=== PATIENT | female | born 1965 | race Caucasian/White ===

== ENCOUNTER 2019-01-02 09:36 | Inpatient (IN) | payer MEDICAID ==
[~2019-01-02] VITALS: Ht 165.1 cm; Wt 172.6 kg
[~2019-01-02 09:36] MED LIST: ALBU8.5H5 INH; CHOL400C PO; FLUT12AE INH; GABA300C10 PO; IBUP200C8 PO; RANI75TA12 PO; SUMA50TA3 PO
[2019-01-02] MEDS ORDERED: AZITHROMYCIN 500 MG in SODIUM CHLORIDE 0.9% 250 ML IVPB ONE (10:00)
[2019-01-02] MEDS ORDERED: CEFTRIAXONE 1,000 MG in SODIUM CHLORIDE 0.9% 50 ML IVPB ONE (10:00)
[2019-01-02] MEDS ORDERED: SODIUM CHLORIDE FLUSH 10ML SYR IVF ONE (10:00)
[2019-01-02] MEDS ORDERED: CEFTRIAXONE PMX 1GM/50ML 50 ML IVPB ONE (10:30)
[2019-01-02] MEDS ORDERED: CEFTRIAXONE PMX 1GM/50ML 50 ML ONE (10:43)
[2019-01-02 10:50] LABS: BASOPHILS # (AUTO) 0.04 x10^3/uL (0-0.1); BASOPHILS % (AUTO) 0 % (0-1); EOSINOPHILS # (AUTO) 0.05 x10^3/uL (0-0.4); EOSINOPHILS % (AUTO) 0 % (1-7); LYMPHOCYTES # (AUTO) 1.19 x10^3/uL (1-3.4); LYMPHOCYTES % (AUTO) 7 % (22-44); MD NO; MEAN CORPUSCULAR HEMOGLOBIN 27.3 pg (27.0-34.8); MEAN CORPUSCULAR HGB CONC 32.8 g/dL (32.4-35.8); MEAN CORPUSCULAR VOLUME 83.2 fL (80-100); MEAN PLATELET VOLUME 9.1 fL (7.4-10.4); MONOCYTES # (AUTO) 0.67 x10^3/uL (0.2-0.8); MONOCYTES % (AUTO) 4 % (2-9); NEUTROPHILS # (AUTO) 14.57 x10^3/uL (1.8-6.8); NEUTROPHILS % (AUTO) 88 % (42-75); PLATELET COUNT 373 x10^3/uL (130-400); RED BLOOD COUNT 4.19 x10^6/uL (3.82-5.3); RED CELL DISTRIBUTION WIDTH 16.3 % (9.6-15.2)
[2019-01-02 10:51] LABS: RAPID INFLUENZA A Negative (Negative); RAPID INFLUENZA B Negative (Negative)
[2019-01-02 11:00] LABS: ALBUMIN 3.2 g/dL (3.4-5.0); ANION GAP 6 mmol/L (5-15); CALCIUM 8.6 mg/dL (8.5-10.1); CHLORIDE 110 mmol/L (98-107)
[2019-01-02 11:06] LABS: ALANINE AMINOTRANSFERASE 18 U/L (12-78); ALKALINE PHOSPHATASE 93 U/L (45-117); BILIRUBIN,TOTAL 0.4 mg/dL (0.2-1.0); TOTAL PROTEIN 7.6 g/dL (6.4-8.2)
--- NOTE | 2019-01-02 11:16 | NUR ---
PRECEPTOR RN: PT CLEANED UP AND LINENS CHANGED.
[2019-01-02] MEDS ORDERED: SODIUM CHLORIDE FLUSH 10ML SYR IVF PRN (11:30)
[2019-01-02] MEDS ORDERED: ALBUTEROL SULFATE 2.5 MG/3 ML ONE (11:45)
[2019-01-02] MEDS ORDERED: ALBUTEROL SULFATE 2.5 MG/3 ML NPPB ONE (12:00)
--- NOTE | 2019-01-02 12:11 | NUR ---
Razia musa in ED - 01/02/19 at 1211 by RONEY PRECEPTOR RN: REPORT TO TONI TEE. ALL QUESTIONS ANSWERED.
--- NOTE | 2019-01-02 12:12 | NUR ---
PRECEPTOR RN: REPORT TO TONI TEE. ALL QUESTIONS ANSWERED.
[2019-01-02] MEDS ORDERED: TIZA6CAP PO (12:33)
[2019-01-02] MEDS ORDERED: DOXE10CA PO (12:33)
--- NOTE | 2019-01-02 13:00 | NUR ---
PRECEPTOR/BREAK RN: PT BEING TRANSPORTED TO FLOOR. PT LEFT WITH ALL PERSONAL BELONGINGS.
[2019-01-02 13:17] VITALS: BP 132/75
[2019-01-02 13:57] VITALS: BP 132/75
[2019-01-02] MEDS ORDERED: CEFTRIAXONE PMX 2GM/50ML 50 ML IV SCH (14:00)
[2019-01-02] MEDS: DOXYCYCLINE 100MG TABLET PO SCH ×2 (14:00→19:56)
[2019-01-02] MEDS ORDERED: ENALAPRILAT 1.25 MG/ML, 2ML IVPush PRN (14:00)
[2019-01-02] MEDS ORDERED: hydrALAzine 20 MG/ML, 1ML IVPush PRN (14:00)
[2019-01-02] MEDS ORDERED: ONDANSETRON 2MG/ML, 2ML IVPush PRN (14:00)
[2019-01-02] MEDS: ALBUTEROL SULFATE 2.5 MG/3 ML NPPB SCH ×2 (14:17→20:19)
[2019-01-02] MEDS: HEPARIN 5,000 UNITS/ML, 1ML SQ SCH ×2 (14:23→22:00)
[2019-01-02 14:31] LABS: HEMOGLOBIN A1C 6.5 % (4.2-6.3)
[2019-01-02] MEDS ORDERED: SODIUM CHLORIDE 0.9% 1,000 ML IV SCH (15:30)
[2019-01-02 19:12] VITALS: BP 149/82
[2019-01-02] MEDS: GUAIFENESIN ER 600 MG TABLET PO SCH (19:56)
[2019-01-03 01:40] VITALS: BP 141/79
[2019-01-03] MEDS: ALBUTEROL SULFATE 2.5 MG/3 ML NPPB SCH ×5 (04:28→19:20)
[2019-01-03] MEDS: HEPARIN 5,000 UNITS/ML, 1ML SQ SCH ×3 (05:22→21:42)
[2019-01-03 06:03] LABS: BASOPHILS # (AUTO) 0.04 x10^3/uL (0-0.1); BASOPHILS % (AUTO) 0 % (0-1); EOSINOPHILS # (AUTO) 0.06 x10^3/uL (0-0.4); EOSINOPHILS % (AUTO) 0 % (1-7); LYMPHOCYTES # (AUTO) 1.27 x10^3/uL (1-3.4); LYMPHOCYTES % (AUTO) 8 % (22-44); MD NO; MEAN CORPUSCULAR HEMOGLOBIN 27.3 pg (27.0-34.8); MEAN CORPUSCULAR HGB CONC 33.4 g/dL (32.4-35.8); MEAN PLATELET VOLUME 9.3 fL (7.4-10.4); MONOCYTES # (AUTO) 0.55 x10^3/uL (0.2-0.8); MONOCYTES % (AUTO) 4 % (2-9); NEUTROPHILS # (AUTO) 13.58 x10^3/uL (1.8-6.8); NEUTROPHILS % (AUTO) 88 % (42-75); PLATELET COUNT 367 x10^3/uL (130-400); RED BLOOD COUNT 4.26 x10^6/uL (3.82-5.3); RED CELL DISTRIBUTION WIDTH 16.7 % (9.6-15.2)
[2019-01-03 06:14] LABS: ANION GAP 8 mmol/L (5-15); CALCIUM 9.1 mg/dL (8.5-10.1); CHLORIDE 109 mmol/L (98-107); CREATININE 0.95 mg/dL (0.55-1.02)
[2019-01-03 06:48] VITALS: BP 171/69
[2019-01-03 09:45] VITALS: BP 201/100
[2019-01-03] MEDS: GUAIFENESIN ER 600 MG TABLET PO SCH ×2 (09:49→21:42)
[2019-01-03] MEDS: ACETAMINOPHEN 325 MG TABLET PO PRN (09:49)
[2019-01-03] MEDS: DOXYCYCLINE 100MG TABLET PO SCH (09:49)
[2019-01-03] MEDS ORDERED: methylPREDNISolone SOD SUCC 125 MG/2 ML IVPush ONE (10:00)
[2019-01-03] MEDS ORDERED: LORazepam 2 MG/ML, 1ML ONE (10:03)
[2019-01-03 10:08] VITALS: BP 169/73
[2019-01-03] MEDS ORDERED: LORazepam 2 MG/ML, 1ML IVPush ONE (10:30)
[2019-01-03] MEDS ORDERED: ROPI2TAB4 PO (11:47)
[2019-01-03] MEDS: PIPERACILLIN/TAZO/PMX 3.375GM 50 ML IV SCH ×2 (13:31→21:41)
[2019-01-03 14:00] VITALS: BP 122/89
[2019-01-03] MEDS: ROPINIROLE 1MG TABLET PO SCH ×2 (16:00→21:41)
[2019-01-03 20:21] VITALS: BP 129/77
[2019-01-03] MEDS: TIZANIDINE HCL 6 MG PO SCH (21:00)
[2019-01-03] MEDS: FLUTICASONE PROPIONATE INH SCH (21:00)
[2019-01-03] MEDS: DOXEPIN 10 MG CAPSULE PO SCH (21:42)
[2019-01-04 02:08] VITALS: BP 108/69
[2019-01-04] MEDS: PIPERACILLIN/TAZO/PMX 3.375GM 50 ML IV SCH ×4 (03:34→20:38)
[2019-01-04] MEDS: HEPARIN 5,000 UNITS/ML, 1ML SQ SCH ×3 (05:34→21:18)
[2019-01-04] MEDS: ALBUTEROL SULFATE 2.5 MG/3 ML NPPB SCH ×4 (07:00→19:10)
[2019-01-04 08:00] VITALS: BP 132/75
[2019-01-04] MEDS: FLUTICASONE PROPIONATE INH SCH ×2 (08:51→20:38)
[2019-01-04] MEDS: TIZANIDINE HCL 6 MG PO SCH ×2 (08:51→20:55)
[2019-01-04] MEDS: CHOLECALCIFEROL 400 UNITS TABLET PO SCH (09:18)
[2019-01-04] MEDS: ROPINIROLE 1MG TABLET PO SCH ×3 (09:18→20:41)
[2019-01-04] MEDS: GUAIFENESIN ER 600 MG TABLET PO SCH ×2 (09:18→20:37)
[2019-01-04 20:08] VITALS: BP 125/73
[2019-01-04] MEDS: DOXYCYCLINE 100MG TABLET PO SCH (20:37)
[2019-01-04] MEDS: DOXEPIN 10 MG CAPSULE PO SCH (20:37)
[2019-01-04] MEDS: ACETAMINOPHEN 325 MG TABLET PO PRN (20:55)
[2019-01-05 00:01] VITALS: BP 125/75
[2019-01-05] MEDS: PIPERACILLIN/TAZO/PMX 3.375GM 50 ML IV SCH ×2 (03:18→09:00)
[2019-01-05] MEDS: HEPARIN 5,000 UNITS/ML, 1ML SQ SCH ×3 (06:25→21:22)
[2019-01-05 06:34] VITALS: BP 133/88
[2019-01-05] MEDS: ALBUTEROL SULFATE 2.5 MG/3 ML NPPB SCH ×4 (06:44→18:50)
[2019-01-05] MEDS: FLUTICASONE PROPIONATE INH SCH ×2 (08:26→21:00)
[2019-01-05] MEDS: TIZANIDINE HCL 6 MG PO SCH ×2 (08:26→21:00)
[2019-01-05] MEDS: DOXYCYCLINE 100MG TABLET PO SCH ×3 (08:27→21:23)
[2019-01-05] MEDS: ROPINIROLE 1MG TABLET PO SCH ×3 (08:27→21:20)
[2019-01-05] MEDS: CHOLECALCIFEROL 400 UNITS TABLET PO SCH (08:27)
[2019-01-05] MEDS: GUAIFENESIN ER 600 MG TABLET PO SCH ×2 (08:27→21:23)
[2019-01-05 08:33] LABS: BASOPHILS # (AUTO) 0.07 x10^3/uL (0-0.1); BASOPHILS % (AUTO) 1 % (0-1); EOSINOPHILS % (AUTO) 1 % (1-7); LYMPHOCYTES # (AUTO) 3.05 x10^3/uL (1-3.4); LYMPHOCYTES % (AUTO) 22 % (22-44); MD NO; MEAN CORPUSCULAR HEMOGLOBIN 26.5 pg (27.0-34.8); MEAN CORPUSCULAR HGB CONC 31.9 g/dL (32.4-35.8); MEAN CORPUSCULAR VOLUME 83.3 fL (80-100); MEAN PLATELET VOLUME 9.2 fL (7.4-10.4); MONOCYTES # (AUTO) 0.77 x10^3/uL (0.2-0.8); MONOCYTES % (AUTO) 6 % (2-9); NEUTROPHILS # (AUTO) 9.97 x10^3/uL (1.8-6.8); NEUTROPHILS % (AUTO) 71 % (42-75); PLATELET COUNT 343 x10^3/uL (130-400); RED BLOOD COUNT 4.07 x10^6/uL (3.82-5.3); RED CELL DISTRIBUTION WIDTH 16.9 % (9.6-15.2)
[2019-01-05 08:36] LABS: ANION GAP 3 mmol/L (5-15); CALCIUM 8.5 mg/dL (8.5-10.1); CHLORIDE 111 mmol/L (98-107)
[2019-01-05 08:37] LABS: CREATININE 0.88 mg/dL (0.55-1.02)
[2019-01-05] MEDS: CEFDINIR 300 MG CAPSULE PO SCH ×2 (10:06→21:23)
[2019-01-05 13:49] VITALS: BP 135/87
[2019-01-05 17:50] VITALS: BP 147/90
[2019-01-05] MEDS: DOXEPIN 10 MG CAPSULE PO SCH (21:23)
[2019-01-06 00:28] VITALS: BP 138/81
[2019-01-06] MEDS: HEPARIN 5,000 UNITS/ML, 1ML SQ SCH ×3 (05:37→21:18)
[2019-01-06] MEDS: ALBUTEROL SULFATE 2.5 MG/3 ML NPPB SCH ×4 (08:50→20:15)
[2019-01-06] MEDS: FLUTICASONE PROPIONATE INH SCH ×2 (09:00→21:00)
[2019-01-06 09:12] VITALS: BP 141/78
[2019-01-06] MEDS: CHOLECALCIFEROL 400 UNITS TABLET PO SCH (09:23)
[2019-01-06] MEDS: ROPINIROLE 1MG TABLET PO SCH ×3 (09:28→21:19)
[2019-01-06] MEDS: GUAIFENESIN ER 600 MG TABLET PO SCH ×2 (09:29→21:19)
[2019-01-06] MEDS: DOXYCYCLINE 100MG TABLET PO SCH ×2 (09:31→21:20)
[2019-01-06] MEDS: CEFDINIR 300 MG CAPSULE PO SCH ×2 (09:31→21:20)
[2019-01-06] MEDS: TIZANIDINE HCL 6 MG PO SCH (13:04)
[2019-01-06 13:12] VITALS: BP 159/86
[2019-01-06 19:10] VITALS: BP 140/71
[2019-01-06] MEDS: TIZANIDINE HCL 6 MG HOMEMEDPO SCH (21:00)
[2019-01-06] MEDS: DOXEPIN 10 MG CAPSULE PO SCH (21:20)
[2019-01-07 00:23] VITALS: BP 125/70
[2019-01-07] MEDS: HEPARIN 5,000 UNITS/ML, 1ML SQ SCH ×3 (05:21→22:05)
[2019-01-07] MEDS: ALBUTEROL SULFATE 2.5 MG/3 ML NPPB SCH ×4 (07:36→18:59)
[2019-01-07 07:45] VITALS: BP 145/75
[2019-01-07] MEDS: ROPINIROLE 1MG TABLET PO SCH ×3 (09:45→22:05)
[2019-01-07] MEDS: CEFDINIR 300 MG CAPSULE PO SCH ×2 (09:46→22:06)
[2019-01-07] MEDS: CHOLECALCIFEROL 400 UNITS TABLET PO SCH (09:46)
[2019-01-07] MEDS: TIZANIDINE HCL 6 MG HOMEMEDPO SCH ×2 (09:47→22:07)
[2019-01-07] MEDS: GUAIFENESIN ER 600 MG TABLET PO SCH ×2 (09:47→22:06)
[2019-01-07] MEDS: DOXYCYCLINE 100MG TABLET PO SCH ×2 (09:47→22:05)
[2019-01-07] MEDS: FLUTICASONE PROPIONATE INH SCH ×2 (09:47→21:00)
[2019-01-07 13:30] VITALS: BP 117/75
[2019-01-07 20:25] VITALS: BP 160/76
[2019-01-07] MEDS: DOXEPIN 10 MG CAPSULE PO SCH (22:05)
[2019-01-08 00:22] VITALS: BP 123/81
[2019-01-08] MEDS: HEPARIN 5,000 UNITS/ML, 1ML SQ SCH ×3 (06:17→20:52)
[2019-01-08] MEDS: ALBUTEROL SULFATE 2.5 MG/3 ML NPPB SCH ×4 (07:00→20:00)
[2019-01-08 07:38] VITALS: BP 129/76
[2019-01-08] MEDS: GUAIFENESIN ER 600 MG TABLET PO SCH ×2 (08:23→20:51)
[2019-01-08] MEDS: CHOLECALCIFEROL 400 UNITS TABLET PO SCH (08:23)
[2019-01-08] MEDS: DOXYCYCLINE 100MG TABLET PO SCH ×2 (08:23→20:51)
[2019-01-08] MEDS: CEFDINIR 300 MG CAPSULE PO SCH ×2 (08:23→20:51)
[2019-01-08] MEDS: FLUTICASONE PROPIONATE INH SCH ×2 (08:23→20:55)
[2019-01-08] MEDS: ROPINIROLE 1MG TABLET PO SCH ×3 (08:23→20:52)
[2019-01-08] MEDS: TIZANIDINE HCL 6 MG HOMEMEDPO SCH ×2 (11:28→20:54)
[2019-01-08 13:40] VITALS: BP 128/82
[2019-01-08] MEDS: ACETAMINOPHEN 325 MG TABLET PO PRN (18:08)
[2019-01-08 20:31] VITALS: BP 109/74
[2019-01-08] MEDS: DOXEPIN 10 MG CAPSULE PO SCH (20:52)
[2019-01-09 01:01] VITALS: BP 113/72
[2019-01-09 05:09] LABS: MEAN CORPUSCULAR HEMOGLOBIN 26.9 pg (27.0-34.8); MEAN CORPUSCULAR HGB CONC 32.4 g/dL (32.4-35.8); MEAN CORPUSCULAR VOLUME 83.2 fL (80-100); MEAN PLATELET VOLUME 9.3 fL (7.4-10.4); PLATELET COUNT 278 x10^3/uL (130-400); RED BLOOD COUNT 4.09 x10^6/uL (3.82-5.3); RED CELL DISTRIBUTION WIDTH 16.6 % (9.6-15.2)
[2019-01-09 05:22] LABS: ANION GAP 5 mmol/L (5-15); CALCIUM 8.9 mg/dL (8.5-10.1); CHLORIDE 106 mmol/L (98-107); CREATININE 0.76 mg/dL (0.55-1.02)
[2019-01-09] MEDS: ACETAMINOPHEN 325 MG TABLET PO PRN (05:44)
[2019-01-09] MEDS: HEPARIN 5,000 UNITS/ML, 1ML SQ SCH ×3 (05:44→22:42)
[2019-01-09 06:02] LABS: BASOPHILS # (AUTO) 0.05 x10^3/uL (0-0.1); BASOPHILS % (AUTO) 0 % (0-1); EOSINOPHILS # (AUTO) 0.34 x10^3/uL (0-0.4); EOSINOPHILS % (AUTO) 3 % (1-7); LYMPHOCYTES % (AUTO) 18 % (22-44); MD SCAN; MONOCYTES # (AUTO) 0.84 x10^3/uL (0.2-0.8); MONOCYTES % (AUTO) 6 % (2-9); NEUTROPHILS # (AUTO) 9.91 x10^3/uL (1.8-6.8); NEUTROPHILS % (AUTO) 73 % (42-75)
[2019-01-09 06:45] VITALS: BP 107/69
[2019-01-09] MEDS: ALBUTEROL SULFATE 2.5 MG/3 ML NPPB SCH ×4 (06:50→20:35)
[2019-01-09] MEDS: ROPINIROLE 1MG TABLET PO SCH ×3 (08:25→21:08)
[2019-01-09] MEDS: CEFDINIR 300 MG CAPSULE PO SCH ×2 (08:26→21:07)
[2019-01-09] MEDS: GUAIFENESIN ER 600 MG TABLET PO SCH ×2 (08:26→21:07)
[2019-01-09] MEDS: FLUTICASONE PROPIONATE INH SCH ×2 (08:26→21:00)
[2019-01-09] MEDS: TIZANIDINE HCL 6 MG HOMEMEDPO SCH ×2 (08:26→21:00)
[2019-01-09] MEDS: CHOLECALCIFEROL 400 UNITS TABLET PO SCH (08:26)
[2019-01-09] MEDS: DOXYCYCLINE 100MG TABLET PO SCH ×2 (08:26→21:07)
[2019-01-09 13:13] VITALS: BP 120/75
[2019-01-09 18:44] VITALS: BP 126/76
[2019-01-09] MEDS: DOXEPIN 10 MG CAPSULE PO SCH (21:07)
[2019-01-10 00:29] VITALS: BP 117/73
[2019-01-10] MEDS: HEPARIN 5,000 UNITS/ML, 1ML SQ SCH ×3 (05:55→22:56)
[2019-01-10] MEDS: ALBUTEROL SULFATE 2.5 MG/3 ML NPPB SCH ×4 (06:30→19:34)
[2019-01-10 07:11] VITALS: BP 130/84
[2019-01-10] MEDS: FLUTICASONE PROPIONATE INH SCH ×2 (07:34→20:06)
[2019-01-10] MEDS: CHOLECALCIFEROL 400 UNITS TABLET PO SCH (07:37)
[2019-01-10] MEDS: DOXYCYCLINE 100MG TABLET PO SCH (07:37)
[2019-01-10] MEDS: ROPINIROLE 1MG TABLET PO SCH ×3 (07:37→20:05)
[2019-01-10] MEDS: CEFDINIR 300 MG CAPSULE PO SCH (07:37)
[2019-01-10] MEDS: GUAIFENESIN ER 600 MG TABLET PO SCH ×2 (07:37→20:05)
[2019-01-10] MEDS: TIZANIDINE HCL 6 MG HOMEMEDPO SCH ×2 (07:37→20:05)
[2019-01-10 15:42] VITALS: BP 132/81
[2019-01-10 19:46] VITALS: BP 147/82
[2019-01-10] MEDS: DOXEPIN 10 MG CAPSULE PO SCH (20:05)
[2019-01-11 02:00] VITALS: BP 117/79
[2019-01-11] MEDS: HEPARIN 5,000 UNITS/ML, 1ML SQ SCH ×3 (06:07→22:31)
[2019-01-11] MEDS: ALBUTEROL SULFATE 2.5 MG/3 ML NPPB SCH ×4 (06:42→18:53)
[2019-01-11 07:21] VITALS: BP 130/84
[2019-01-11] MEDS: FLUTICASONE PROPIONATE INH SCH ×2 (08:52→21:01)
[2019-01-11] MEDS ORDERED: ROPINIROLE 0.5MG TABLET ONE (08:54)
[2019-01-11] MEDS: CHOLECALCIFEROL 400 UNITS TABLET PO SCH (09:05)
[2019-01-11] MEDS: GUAIFENESIN ER 600 MG TABLET PO SCH ×2 (09:05→20:59)
[2019-01-11] MEDS: ROPINIROLE 1MG TABLET PO SCH ×3 (09:06→21:00)
[2019-01-11] MEDS: TIZANIDINE HCL 6 MG HOMEMEDPO SCH ×2 (09:08→15:16)
[2019-01-11 14:55] VITALS: BP 125/82
--- NOTE | 2019-01-11 16:45 | NUR ---
Green Activity sheet placed in pt's room and exercise handouts left on pt's bedside table. Staff informed and patient educated. Addendum: 01/11/19 at 1646 by Gilmar Garzon PT Amended: Links added.
[2019-01-11 20:44] VITALS: BP 145/78
[2019-01-11] MEDS: DOXEPIN 10 MG CAPSULE PO SCH (21:00)
[2019-01-12 01:33] VITALS: BP 150/68
[2019-01-12] MEDS: HEPARIN 5,000 UNITS/ML, 1ML SQ SCH ×2 (06:07→14:30)
[2019-01-12] MEDS: ALBUTEROL SULFATE 2.5 MG/3 ML NPPB SCH ×3 (06:25→14:32)
[2019-01-12 06:48] VITALS: BP 163/91
[2019-01-12] MEDS ORDERED: ALBU2.5V NPPB (07:48)
[2019-01-12] MEDS ORDERED: GUAI600T31 PO (07:48)
[2019-01-12] MEDS ORDERED: BUDE10.2 INH (07:54)
[2019-01-12] MEDS: GUAIFENESIN ER 600 MG TABLET PO SCH (08:25)
[2019-01-12] MEDS: CHOLECALCIFEROL 400 UNITS TABLET PO SCH (08:26)
[2019-01-12] MEDS: FLUTICASONE PROPIONATE INH SCH (08:26)
[2019-01-12] MEDS: TIZANIDINE HCL 6 MG HOMEMEDPO SCH ×2 (08:26→14:50)
[2019-01-12] MEDS: ACETAMINOPHEN 325 MG TABLET PO PRN (08:29)
[2019-01-12] MEDS: ROPINIROLE 1MG TABLET PO SCH ×2 (08:29→14:50)
[2019-01-12] MEDS ORDERED: LORazepam 2 MG/ML, 1ML IVPush PRN (10:00)
[2019-01-12 13:24] VITALS: BP 115/73
== END 2019-01-12 15:09 | DRG 871 ==
LOC: ED 10:52 → EDIP 11:22 → 3NE 13:09 → 4WST 01-03 11:15
PROVIDERS: ADMIT Internal Medicine; ATTEND Internal Medicine
DX: A41.9 Sepsis, unspecified organism (principal); J96.01 Acute respiratory failure with hypoxia; J18.0 Bronchopneumonia, unspecified organism; Z68.44 Body mass index [BMI] 60.0-69.9, adult; L03.116 Cellulitis of left lower limb; L03.115 Cellulitis of right lower limb; J45.909 Unspecified asthma, uncomplicated; F41.9 Anxiety disorder, unspecified; E66.01 Morbid (severe) obesity due to excess calories; G20 Parkinson's disease; I10 Essential (primary) hypertension; Z91.040 Latex allergy status; Z91.013 Allergy to seafood; Z88.2 Allergy status to sulfonamides; Z91.048 Other nonmedicinal substance allergy status
CPT/HCPCS: 36415; 84145; 87400; 99285; J7613; 71045; 80048; 80053; 82040; 83036; 83605; 83735; 83880; 84100; 84443; 85025; 87040; 87070; 87205; 90656; 93005; 93308; 93321; 93325; 94640; 96374; G0378; J0456; J0696; J1644; J2405; J2543; J2060; J2930; J7030; J7050